=== PATIENT | male | born 1960 | race Caucasian/White ===

== ENCOUNTER 2023-07-01 17:19 | Inpatient (IN) | payer OTHER ==
[~2023-07-01] VITALS: Ht 170.2 cm; Wt 106.6 kg
[2023-07-01] MEDS ORDERED: ASPIRIN 325 MG TABLET ONE (17:59)
[2023-07-01] MEDS ORDERED: ASPIRIN 325 MG TABLET PO ONE (18:00)
[2023-07-01] MEDS ORDERED: IV NS 0.9% 500 ML BAG IV ONE (18:00)
[2023-07-01] MEDS ORDERED: DILTIAZEM HCL 50 MG IV IV ONE ×2 (18:00→18:30)
[2023-07-01] MEDS ORDERED: DILTIAZEM HCL 25 MG IV ONE (18:00)
[2023-07-01 18:13] LABS: BASOPHILS # (AUTO) 0.1 K/uL (0.0-0.2); BASOPHILS % (AUTO) 0.5 % (0.0-2.0); EOSINOPHILS # (AUTO) 0.3 K/uL (0.0-0.7); HEMATOCRIT 44 % (39-51); HEMOGLOBIN 14.5 g/dL (13.5-17.5); LYMPHOCYTES # (AUTO) 2.8 K/uL (0.8-4.8); LYMPHOCYTES % (AUTO) 24.5 % (20.0-44.0); MEAN CORPUSCULAR HEMOGLOBIN 28 PG (26.0-33.0); MEAN CORPUSCULAR HGB CONC 33 g/dl (31.0-36.0); MEAN CORPUSCULAR VOLUME 84 fL (80-96); MONOCYTES # (AUTO) 0.7 K/uL (0.1-1.30); MONOCYTES % (AUTO) 5.7 % (2.0-12.0); NEUTROPHILS # (AUTO) 7.7 K/uL (1.8-8.9); NEUTROPHILS % (AUTO) 66.3 % (43.0-81.0); PLATELET COUNT (AUTO) 398 K/uL (150-450); RED BLOOD CELL COUNT(AUTO) 5.27 MIL/uL (4.5-6.0); RED CELL DISTRIBUTION WIDTH 14.1 % (11.5-15.0); WHITE BLOOD COUNT (AUTO) 11.5 K/uL (4.3-11.0)
[2023-07-01 18:32] LABS: CALCIUM, SERUM 10.1 mg/dL (8.5-10.1); CARBON DIOXIDE 19 mmol/L (21-32); CHLORIDE 102 mmol/L (98-107); CREATININE 1.8 mg/dL (0.6-1.3); GLUCOSE 70 mg/dL (74-106); POTASSIUM 4.4 mmol/L (3.5-5.1); SODIUM SERUM 138 mmol/L (136-145); UREA NITROGEN, BLOOD 56 mg/dL (7-18)
[2023-07-01 18:48] LABS: INR 1.11 (0.91-1.10); PARTIAL THROMBOPLASTIN TIME 29.1 SEC (24.3-34.3); PROTHROMBIN TIME 11.6 SECS (9.2-11.1)
[2023-07-01 18:49] LABS: ALANINE AMINOTRANSFERASE 33 U/L (12-78); ALBUMIN 4.2 g/dL (3.4-5.0); ALKALINE PHOSPHATASE 88 U/L (46-116); ASPARTATE AMINOTRANSFERASE 23 U/L (15-37); BILIRUBIN,DIRECT 0.1 mg/dL (0.0-0.2); BILIRUBIN,TOTAL 0.4 mg/dL (0.2-1.0); NT-PRO BNP 6071 pg/mL (0-125); TOTAL PROTEIN, SERUM 7.4 g/dL (6.4-8.2)
[2023-07-01] MEDS ORDERED: RIVA10TA PO (19:01)
[2023-07-01] MEDS ORDERED: TAMS-12 PO (19:01)
[2023-07-01] MEDS ORDERED: TRAZ-252 PO (19:01)
[2023-07-01] MEDS ORDERED: ESCI20TA PO (19:01)
[2023-07-01] MEDS ORDERED: METF-440 PO (19:01)
[2023-07-01] MEDS ORDERED: SEMA0.25 SQ (19:01)
[2023-07-01] MEDS ORDERED: DICL100G34 TP (19:01)
[2023-07-01] MEDS ORDERED: LISI40TA13 PO (19:01)
[2023-07-01] MEDS ORDERED: GLIP5TAB26 PO (19:01)
[2023-07-01] MEDS ORDERED: ACET-868 PO (19:01)
[2023-07-01] MEDS ORDERED: ATOR40TA PO (19:01)
[2023-07-01] MEDS ORDERED: METO50TA16 PO (19:01)
[2023-07-01] MEDS ORDERED: METOPROLOL TARTRATE 25 MG TABLET PO SCH (22:26)
[2023-07-01] MEDS ORDERED: MAG HYDROX/AL HYDROX/SIMETH 30 ML UDC PO PRN (22:30)
[2023-07-01] MEDS ORDERED: MAGNESIUM HYDROXIDE 30 ML UDC PO PRN (22:30)
[2023-07-01] MEDS ORDERED: DEXTROSE 50%-WATER 50 ML DISP.SYRIN IV PRN (22:30)
[2023-07-01] MEDS ORDERED: ACETAMINOPHEN 325 MG TABLET PO PRN (22:30)
[2023-07-01] MEDS ORDERED: ONDANSETRON HCL/PF 4 MG/2 ML VIAL IVP PRN (22:30)
[2023-07-01] MEDS ORDERED: ENOXAPARIN SODIUM 100 MG/ML DISP.SYRIN SQ SCH (22:54)
[2023-07-02] MEDS ORDERED: METOPROLOL TARTRATE 25 MG TABLET PO ONE (00:30)
[2023-07-02] MEDS ORDERED: FUROSEMIDE 20 MG/2 ML VIAL IV ONE (00:30)
[2023-07-02] MEDS: BLOOD SUGAR DIAGNOSTIC 1 EACH STRIP IN SCH ×4 (06:31→21:06)
[2023-07-02 06:46] LABS: BASOPHILS # (AUTO) 0.1 K/uL (0.0-0.2); BASOPHILS % (AUTO) 0.7 % (0.0-2.0); EOSINOPHILS # (AUTO) 0.5 K/uL (0.0-0.7); EOSINOPHILS % (AUTO) 4.4 % (0.0-6.0); HEMATOCRIT 44 % (39-51); HEMOGLOBIN 14.7 g/dL (13.5-17.5); LYMPHOCYTES # (AUTO) 3.7 K/uL (0.8-4.8); MEAN CORPUSCULAR HEMOGLOBIN 28 PG (26.0-33.0); MEAN CORPUSCULAR HGB CONC 34 g/dl (31.0-36.0); MEAN CORPUSCULAR VOLUME 84 fL (80-96); MONOCYTES # (AUTO) 0.7 K/uL (0.1-1.30); MONOCYTES % (AUTO) 6.3 % (2.0-12.0); NEUTROPHILS # (AUTO) 5.6 K/uL (1.8-8.9); NEUTROPHILS % (AUTO) 53.6 % (43.0-81.0); PLATELET COUNT (AUTO) 370 K/uL (150-450); RED BLOOD CELL COUNT(AUTO) 5.17 MIL/uL (4.5-6.0); RED CELL DISTRIBUTION WIDTH 14.1 % (11.5-15.0); WHITE BLOOD COUNT (AUTO) 10.5 K/uL (4.3-11.0)
[2023-07-02 07:00] LABS: CALCIUM, SERUM 9.9 mg/dL (8.5-10.1); CREATININE 1.4 mg/dL (0.6-1.3); MAGNESIUM 2.1 mg/dL (1.8-2.4); PHOSPHORUS 4.6 mg/dL (2.5-4.9)
[2023-07-02 07:10] LABS: THYROID STIMULATING HORMONE 1.968 uIU/mL (0.358-3.74)
[2023-07-02 07:30] VITALS: BP 132/80; TEMP 98.4; O2SAT 98
[2023-07-02] MEDS: PANTOPRAZOLE 40 MG TABLET.DR PO SCH (07:52)
[2023-07-02] MEDS: METOPROLOL TARTRATE 25 MG TABLET PO SCH ×2 (08:13→21:09)
[2023-07-02] MEDS: INSULIN REGULAR, HUMAN 100 UNIT/ML 3 ML VIAL SQ PRN ×2 (11:25→21:08)
[2023-07-02 12:30] VITALS: BP 111/74; TEMP 98.4; O2SAT 97
[2023-07-02] MEDS ORDERED: AMIODARONE 450 MG in IV D5W 241 ML IV PRN (15:30)
[2023-07-02] MEDS ORDERED: AMIODARONE 150 MG in IV D5W 100 ML IV ONE ×2 (15:30→16:00)
[2023-07-02 16:00] VITALS: BP 108/80; TEMP 99.1; O2SAT 96
[2023-07-02] MEDS ORDERED: AMIODARONE 900 MG in IV D5W 482 ML IV PRN (16:00)
[2023-07-02 16:30] VITALS: BP 103/82; TEMP 98.4; O2SAT 95
[2023-07-02] MEDS: RIVAROXABAN 10 MG TABLET PO SCH (17:19)
[2023-07-02] MEDS: AMIODARONE 450 MG in IV D5W 241 ML IV PRN (18:02)
[2023-07-02 20:00] VITALS: BP 124/87; TEMP 98.8; O2SAT 99
[2023-07-03] VITALS: BP 103/68; TEMP 97.7; O2SAT 96
[2023-07-03] MEDS: AMIODARONE 450 MG in IV D5W 241 ML IV PRN ×3 (00:20→17:35)
[2023-07-03 04:00] VITALS: BP 106/80; TEMP 98.4; O2SAT 96
[2023-07-03 07:05] LABS: BASOPHILS # (AUTO) 0.1 K/uL (0.0-0.2); BASOPHILS % (AUTO) 0.6 % (0.0-2.0); EOSINOPHILS # (AUTO) 0.6 K/uL (0.0-0.7); EOSINOPHILS % (AUTO) 6.2 % (0.0-6.0); HEMATOCRIT 45 % (39-51); HEMOGLOBIN 15.2 g/dL (13.5-17.5); LYMPHOCYTES % (AUTO) 32.8 % (20.0-44.0); MEAN CORPUSCULAR HEMOGLOBIN 28 PG (26.0-33.0); MEAN CORPUSCULAR HGB CONC 34 g/dl (31.0-36.0); MEAN CORPUSCULAR VOLUME 84 fL (80-96); MONOCYTES # (AUTO) 0.6 K/uL (0.1-1.30); MONOCYTES % (AUTO) 6.8 % (2.0-12.0); NEUTROPHILS # (AUTO) 4.8 K/uL (1.8-8.9); NEUTROPHILS % (AUTO) 53.6 % (43.0-81.0); PLATELET COUNT (AUTO) 332 K/uL (150-450); RED BLOOD CELL COUNT(AUTO) 5.34 MIL/uL (4.5-6.0); RED CELL DISTRIBUTION WIDTH 13.9 % (11.5-15.0)
[2023-07-03 07:20] LABS: CALCIUM, SERUM 9.7 mg/dL (8.5-10.1); MAGNESIUM 1.9 mg/dL (1.8-2.4); PHOSPHORUS 4.1 mg/dL (2.5-4.9); POTASSIUM 3.7 mmol/L (3.5-5.1)
[2023-07-03] MEDS: BLOOD SUGAR DIAGNOSTIC 1 EACH STRIP IN SCH ×4 (07:53→21:40)
[2023-07-03 08:00] VITALS: BP 105/73; TEMP 97.9; O2SAT 98
[2023-07-03] MEDS: PANTOPRAZOLE 40 MG TABLET.DR PO SCH (08:10)
[2023-07-03] MEDS: METOPROLOL TARTRATE 25 MG TABLET PO SCH ×2 (08:11→21:31)
[2023-07-03 12:00] VITALS: BP 102/70; TEMP 98.4; O2SAT 96
[2023-07-03] MEDS ORDERED: IV NS 0.9% 1,000 ML IV ONE (13:00)
[2023-07-03 16:00] VITALS: BP 115/73; TEMP 98.8; O2SAT 96
[2023-07-03] MEDS: RIVAROXABAN 10 MG TABLET PO SCH (16:07)
[2023-07-03 20:00] VITALS: BP 121/81; TEMP 97.8; O2SAT 95
[2023-07-03] MEDS: INSULIN REGULAR, HUMAN 100 UNIT/ML 3 ML VIAL SQ PRN (21:40)
[2023-07-04] VITALS: BP 116/87; TEMP 98.2; O2SAT 96
[2023-07-04 04:00] VITALS: BP 109/70; TEMP 97.9; O2SAT 95
[2023-07-04 06:16] LABS: BASOPHILS % (AUTO) 0.5 % (0.0-2.0); EOSINOPHILS # (AUTO) 0.5 K/uL (0.0-0.7); EOSINOPHILS % (AUTO) 5.1 % (0.0-6.0); HEMATOCRIT 44 % (39-51); HEMOGLOBIN 14.6 g/dL (13.5-17.5); LYMPHOCYTES # (AUTO) 3.1 K/uL (0.8-4.8); LYMPHOCYTES % (AUTO) 32.5 % (20.0-44.0); MEAN CORPUSCULAR HEMOGLOBIN 28 PG (26.0-33.0); MEAN CORPUSCULAR HGB CONC 34 g/dl (31.0-36.0); MEAN CORPUSCULAR VOLUME 84 fL (80-96); MONOCYTES # (AUTO) 0.6 K/uL (0.1-1.30); MONOCYTES % (AUTO) 6.6 % (2.0-12.0); NEUTROPHILS # (AUTO) 5.2 K/uL (1.8-8.9); NEUTROPHILS % (AUTO) 55.3 % (43.0-81.0); PLATELET COUNT (AUTO) 325 K/uL (150-450); RED BLOOD CELL COUNT(AUTO) 5.17 MIL/uL (4.5-6.0); WHITE BLOOD COUNT (AUTO) 9.5 K/uL (4.3-11.0)
[2023-07-04 06:49] LABS: CALCIUM, SERUM 9.2 mg/dL (8.5-10.1); CREATININE 0.9 mg/dL (0.6-1.3); MAGNESIUM 1.7 mg/dL (1.8-2.4); PHOSPHORUS 3.3 mg/dL (2.5-4.9); POTASSIUM 3.8 mmol/L (3.5-5.1)
[2023-07-04] MEDS: BLOOD SUGAR DIAGNOSTIC 1 EACH STRIP IN SCH ×2 (07:35→11:27)
[2023-07-04] MEDS: PANTOPRAZOLE 40 MG TABLET.DR PO SCH (07:41)
[2023-07-04] MEDS: Magnesium 1GM/D5W 100ML PREMIX 100 ML IV SCH ×2 (08:23→09:48)
[2023-07-04] MEDS ORDERED: METOPROLOL TARTRATE 50 MG TABLET PO SCH (09:00)
[2023-07-04 10:27] VITALS: BP 118/69; TEMP 97.9; O2SAT 95
[2023-07-04 12:00] VITALS: BP 119/77; TEMP 97.8; O2SAT 98
[2023-07-04 16:00] VITALS: BP 128/83; TEMP 97.5; O2SAT 98
[2023-07-04] MEDS ORDERED: METO50TA16 PO (16:04)
== END 2023-07-04 17:00 | disposition home or self-care (01) | DRG 201 ==
LOC: ER 18:03 → TELE 21:23 → TELE1 07-02 16:14 → TELE-TD 07-02 16:18 → TELE1 07-04 08:35
PROVIDERS: ATTEND Nurse Practitioner Acute Care
DX: I48.0 Paroxysmal atrial fibrillation (principal); N17.0 Acute kidney failure with tubular necrosis; I21.A1 Myocardial infarction type 2; I50.33 Acute on chronic diastolic (congestive) heart failure; D68.69 Other thrombophilia; I13.0 Hypertensive heart and chronic kidney disease with heart failure and stage 1 through stage 4 chronic kidney disease, or unspecified chronic kidney disease; Z79.01 Long term (current) use of anticoagulants; E78.5 Hyperlipidemia, unspecified; F32.A Depression, unspecified; I48.92 Unspecified atrial flutter; Z79.84 Long term (current) use of oral hypoglycemic drugs; N18.9 Chronic kidney disease, unspecified; Z98.84 Bariatric surgery status; E11.22 Type 2 diabetes mellitus with diabetic chronic kidney disease
CPT/HCPCS: 36415; 71045-TC; 80048-TC; 80061-TC; 80076-TC; 82962-TC; 83735-TC; 83880; 84100-TC; 84443-TC; 84484-TC; 85025-TC; 85730-TC; 93307-TC; A4223; G0378; J0282; J1650; J1815; J1940; J3475; J3490; J7030; J7040; J7050; J7060

== ENCOUNTER 2023-11-25 19:27 | Emergency (ER) | payer OTHER ==
[~2023-11-25] VITALS: Ht 170.2 cm; Wt 84.8 kg
[~2023-11-25 19:27] MED LIST: ACET-868 PO; ATOR40TA PO; DICL100G34 TP; ESCI20TA PO; GLIP5TAB26 PO; LISI40TA13 PO; METF-440 PO; METO50TA16 PO; RIVA10TA PO; SEMA0.25 SQ; TAMS-12 PO; TRAZ-252 PO
[2023-11-25] MEDS ORDERED: MORPHINE SULFATE INJ 4 MG/ML DISP.SYRIN ONE (22:13)
[2023-11-25] MEDS: MORPHINE SULFATE INJ 2 MG/ML DISP.SYRIN IV ONE (22:15)
[2023-11-25 22:45] LABS: BASOPHILS % (AUTO) 0.2 % (0.0-2.0); EOSINOPHILS # (AUTO) 0.5 K/uL (0.0-0.7); EOSINOPHILS % (AUTO) 4.1 % (0.0-6.0); HEMATOCRIT 37 % (39-51); HEMOGLOBIN 12.2 g/dL (13.5-17.5); LYMPHOCYTES # (AUTO) 2.7 K/uL (0.8-4.8); LYMPHOCYTES % (AUTO) 20.6 % (20.0-44.0); MEAN CORPUSCULAR HEMOGLOBIN 29 PG (26.0-33.0); MEAN CORPUSCULAR HGB CONC 34 g/dl (31.0-36.0); MEAN CORPUSCULAR VOLUME 88 fL (80-96); MONOCYTES # (AUTO) 0.9 K/uL (0.1-1.30); MONOCYTES % (AUTO) 6.6 % (2.0-12.0); NEUTROPHILS # (AUTO) 8.9 K/uL (1.8-8.9); NEUTROPHILS % (AUTO) 68.5 % (43.0-81.0); PLATELET COUNT (AUTO) 240 K/uL (150-450); RED BLOOD CELL COUNT(AUTO) 4.16 MIL/uL (4.5-6.0); RED CELL DISTRIBUTION WIDTH 14.2 % (11.5-15.0); WHITE BLOOD COUNT (AUTO) 13.1 K/uL (4.3-11.0)
[2023-11-25 23:03] LABS: INR 1.09 (0.91-1.10); PROTHROMBIN TIME 11.5 SECS (9.2-11.1)
[2023-11-25 23:37] LABS: CALCIUM, SERUM 7.6 mg/dL (8.5-10.1); CARBON DIOXIDE 24 mmol/L (21-32); CHLORIDE 101 mmol/L (98-107); CREATININE 1.1 mg/dL (0.6-1.3); GLUCOSE 98 mg/dL (74-106); POTASSIUM 4.1 mmol/L (3.5-5.1); SODIUM SERUM 135 mmol/L (136-145); UREA NITROGEN, BLOOD 21 mg/dL (7-18)
[2023-11-26] MEDS ORDERED: ACET-2605 PO (00:26)
[2023-11-26] MEDS ORDERED: HYDR-4209 PO ×2 (00:26→00:53)
[2023-11-26] MEDS ORDERED: IBUP-1955 PO (00:26)
[2023-11-26] MEDS ORDERED: HYDR-4675 PO (00:51)
[2023-11-26] MEDS ORDERED: HYDR-4303 PO (00:51)
[2023-11-26 01:13] VITALS: BP 138/75; TEMP 98.1; O2SAT 98
== END 2023-11-26 01:14 | disposition home or self-care (01) ==
LOC: ER 19:46
DX: S52.501A Unspecified fracture of the lower end of right radius, initial encounter for closed fracture (principal); S09.90XA Unspecified injury of head, initial encounter; M25.511 Pain in right shoulder; I10 Essential (primary) hypertension; I48.91 Unspecified atrial fibrillation; E11.9 Type 2 diabetes mellitus without complications; Z79.84 Long term (current) use of oral hypoglycemic drugs; Z79.899 Other long term (current) drug therapy; W18.30XA Fall on same level, unspecified, initial encounter; Y93.89 Activity, other specified; Y92.89 Other specified places as the place of occurrence of the external cause; Y99.8 Other external cause status
CPT/HCPCS: 29125; 36415; 70450; 73030; 73110; 80048; 84484; 85025; 85730; 86850; 93005; 99285; J2270